=== PATIENT | male | born 1995 | race American Indian/Alaskan Native ===

== ENCOUNTER 2018-11-21 20:49 | Emergency (ER) | payer MEDICAID, OTHER ==
[2018-11-21 21:27] VITALS: BP 118/73
--- NOTE | 2018-11-21 21:29 | Emergency Department Report ---
Chief Complaint: Urogenital-Male Stated Complaint: PAINFUL URINATION Time Seen by Provider: 11/21/18 21:26 - HPI History of Present Illness: This is a 22 y.o. male that presents with penile discharge and dysuria for 5 days. Patient is concerned of possible STD. Denies pelvic pain, testicular swelling, or low back pain. - ROS Review of Systems: : penile discharge and dysuria - Exam Vital Signs: Vital Signs 11/21/18 21:26 Temperature 98.6 F Pulse Rate 84 Respiratory 18 Rate Blood Pressure 118/73 O2 Sat by Pulse 100 Oximetry MSE screening note: Focused history and physical exam performed. Due to findings the following was ordered: Fast track for further evaluation. ED Disposition for MSE Condition: Stable
--- NOTE | 2018-11-21 23:41 | Emergency Department Report ---
Chief Complaint: Urogenital-Male Stated Complaint: PAINFUL URINATION Time Seen by Provider: 11/21/18 21:26 - HPI History of Present Illness: 23-year-old -[place] male presents to the emergency room for 7 days of dysuria and penile discharge discharge. Not any fever chills no nausea no vomiting or abdominal pain. - Exam Vital Signs: Vital Signs 11/21/18 21:26 Temperature 98.6 F Pulse Rate 84 Respiratory 18 Rate Blood Pressure 118/73 O2 Sat by Pulse 100 Oximetry MSE screening note: Focused history and physical exam performed. Due to findings the following was ordered: Patient is referred to the health department for STD evaluation and treatment. ED Disposition for MSE Clinical Impression: Concern about STD in male without diagnosis Disposition: DC-01 TO HOME OR SELFCARE Is pt being admited?: No Does the pt Need Aspirin: No Condition: Stable Additional Instructions: Please follow up at the health department for full STD evaluation to include gonorrhea chlamydia, hepatitis, syphilis, HIV, herpes. Referrals: LAURA SWEENEY MD [Primary Care Provider] - 3-5 Days [facility] [Outside] - 3-5 Days [facility] [Outside] - 3-5 Days [facility] [Outside] - 3-5 Days [facility] [Outside] - 3-5 Days
== END 2018-11-21 23:37 | disposition home or self-care (01) ==
LOC: ED 20:49
DX: R30.0 Dysuria (principal); R36.9 Urethral discharge, unspecified
CPT/HCPCS: 99282